=== PATIENT | male | born 1985 | race Caucasian/White ===

== ENCOUNTER 2019-10-01 00:04 | Emergency (ER) | payer SELFPAY ==
[~2019-10-01] VITALS: Ht 160 cm; Wt 78.0 kg
[2019-10-01 00:17] VITALS: BP_SYST 150
--- NOTE | 2019-10-01 01:19 | NUR ---
Patient to ER bed 05 to gown for evaluation. Side rails up. Report given to Harman MILLAN.
--- NOTE | 2019-10-01 01:26 | NUR ---
ER-MD AT BEDSIDE EVALUATING PT.
--- NOTE | 2019-10-01 01:44 | NUR ---
WENT FOR CT SCAN OF HEAD VIA WHEELCHAIR.
--- NOTE | 2019-10-01 03:04 | NUR ---
ER-MD BACK AT BEDSIDE TO RE-EVALUATE AND DISCUSS PLAN OF CARE WITH PT.
--- NOTE | 2019-10-01 03:12 | NUR ---
DISCHARGED STABLE. PRESCRIPTION,VERBAL AND WRITTEN AFTERCARE INSTRUCTIONS GIVEN. VERBALIZED UNDERSTANDING. LEFT AMBULATORY WITH STABLE GAIT.
[2019-10-01 03:20] VITALS: BP_SYST 132
== END 2019-10-01 03:20 | disposition home or self-care (01) ==
LOC: SED 00:04
DX: S06.0X0A Concussion without loss of consciousness, initial encounter (principal); X58.XXXA Exposure to other specified factors, initial encounter; Y93.89 Activity, other specified; Y92.89 Other specified places as the place of occurrence of the external cause; Y99.8 Other external cause status
CPT/HCPCS: 70450-TC; 99284

== ENCOUNTER 2022-11-28 21:17 | Emergency (ER) | payer MEDICAID, OTHER ==
[~2022-11-28] VITALS: Ht 167.6 cm; Wt 72.6 kg
[2022-11-28 21:43] VITALS: BP_SYST 143
[2022-11-29] MEDS ORDERED: CYCL10TA24 PO (01:26)
[2022-11-29] MEDS ORDERED: ACET-73 PO (01:26)
[2022-11-29] MEDS ORDERED: KETOROLAC TROMETHAMINE 30 MG VIAL IM ONE (01:30)
[2022-11-29 02:08] VITALS: BP_SYST 139
== END 2022-11-29 02:08 | disposition home or self-care (01) ==
LOC: SED 21:17
DX: M62.838 Other muscle spasm (principal); M54.2 Cervicalgia; R51.9 Headache, unspecified; R11.0 Nausea; Z79.899 Other long term (current) drug therapy
CPT/HCPCS: 99285; 70450; 72125; 76376; 96372; J1885

== ENCOUNTER 2024-01-01 21:12 | Emergency (ER) | payer MEDICAID, OTHER ==
[~2024-01-01] VITALS: Ht 162.6 cm; Wt 74.8 kg
[~2024-01-01 21:12] MED LIST: ACET-73 PO; CYCL10TA24 PO
[2024-01-01 21:21] VITALS: BP_SYST 129; PULSE 63; RESP 20; TEMP 98.3; O2SAT 98
[2024-01-01 22:26] LABS: BILIRUBIN,URINE NEGATIVE (NEGATIVE); BLOOD, URINE NEGATIVE (NEGATIVE); CLARITY/URINE CLEAR (CLEAR); COLOR,URINE YELLOW (YELLOW); GLUCOSE,URINE NEGATIVE (NEGATIVE); KETONES,URINE NEGATIVE (NEGATIVE); LEUKOCYTE ESTERASE ,URINE NEGATIVE (NEGATIVE); NITRITE, URINE NEGATIVE (NEGATIVE); PROTEIN URINE NEGATIVE (NEGATIVE); UROBILINOGEN,URINE 0.2 (0.2-1.0)
[2024-01-01] MEDS: KETOROLAC TROMETHAMINE 60 MG/2 ML VIAL IM ONE (23:08)
[2024-01-01] MEDS ORDERED: BENZ1LOZ73 PO (23:29)
[2024-01-01] MEDS ORDERED: NAPR-1172 PO (23:29)
[2024-01-01 23:36] VITALS: BP_SYST 129; PULSE 63; RESP 20; TEMP 98.3; O2SAT 98
== END 2024-01-01 23:36 | disposition home or self-care (01) ==
LOC: SED 21:12
DX: S33.5XXA Sprain of ligaments of lumbar spine, initial encounter (principal); R10.9 Unspecified abdominal pain; R11.0 Nausea; J45.909 Unspecified asthma, uncomplicated; Z98.890 Other specified postprocedural states; Z79.899 Other long term (current) drug therapy; V89.2XXA Person injured in unspecified motor-vehicle accident, traffic, initial encounter; Y93.89 Activity, other specified; Y92.89 Other specified places as the place of occurrence of the external cause; Y99.8 Other external cause status
CPT/HCPCS: 99284; 71045; 81001; 96372; J1885; 81003

== ENCOUNTER 2024-04-26 23:19 | Emergency (ER) | payer OTHER ==
[~2024-04-26] VITALS: Ht 165.1 cm; Wt 72.6 kg
[~2024-04-26 23:19] MED LIST changes: +BENZ1LOZ73 PO; +NAPR-1172 PO
[2024-04-26 23:28] VITALS: BP_SYST 140; PULSE 61; RESP 20; TEMP 98; O2SAT 98
[2024-04-27 00:19] LABS: BASOPHILS # (AUTO) 0.1 K/uL (0.0-0.2); BASOPHILS % (AUTO) 1.4 % (0.0-2.0); EOSINOPHILS # (AUTO) 0.6 K/uL (0.0-0.4); EOSINOPHILS % (AUTO) 7.7 % (0.0-4.0); HEMOGLOBIN 14.8 g/dL (14.0-18.0); LYMPHOCYTES % (AUTO) 36.3 % (20.5-51.5); MEAN CORPUSCULAR HEMOGLOBIN 31 pg (27-31); MEAN CORPUSCULAR HGB CONC 35 % (32-36); MEAN CORPUSCULAR VOLUME 88 fL (79.0-98.0); MONOCYTES # (AUTO) 0.5 K/uL (0.0-1.0); MONOCYTES % (AUTO) 6.5 % (1.7-9.3); NEUTROPHILS % (AUTO) 48.1 % (40.0-70.0); PLATELET COUNT (AUTO) 307 K/uL (130-430); RED BLOOD CELL COUNT(AUTO) 4.77 MIL/uL (4.2-6.2); RED CELL DISTRIBUTION WIDTH 13.4 % (9.0-15.0); WHITE BLOOD COUNT (AUTO) 8.3 K/uL (4.8-10.8)
[2024-04-27] MEDS: MORPHINE 4 MG INJ. 4 MG/ML VIAL IVP ONE (00:30)
[2024-04-27] MEDS: KETOROLAC TROMETHAMINE 30 MG VIAL IVP ONE (00:51)
[2024-04-27 00:54] LABS: CALCIUM 9.8 mg/dL (8.4-11.0); CREATININE 0.93 mg/dL (0.55-1.30); POTASSIUM 4.3 mmol/L (3.5-5.1)
[2024-04-27 01:41] LABS: BILIRUBIN,URINE NEGATIVE (NEGATIVE); BLOOD, URINE NEGATIVE (NEGATIVE); CLARITY/URINE CLEAR (CLEAR); COLOR,URINE YELLOW (YELLOW); GLUCOSE,URINE NEGATIVE (NEGATIVE); KETONES,URINE NEGATIVE (NEGATIVE); LEUKOCYTE ESTERASE ,URINE NEGATIVE (NEGATIVE); NITRITE, URINE NEGATIVE (NEGATIVE); PROTEIN URINE NEGATIVE (NEGATIVE); UROBILINOGEN,URINE 0.2 (0.2-1.0)
[2024-04-27] MEDS ORDERED: TRAM50TA2 PO (02:36)
[2024-04-27 03:01] VITALS: BP_SYST 140; PULSE 61; RESP 20; TEMP 98; O2SAT 98
== END 2024-04-27 03:01 | disposition home or self-care (01) ==
LOC: SED 23:19
DX: M54.50 Low back pain, unspecified (principal); G89.29 Other chronic pain; J45.909 Unspecified asthma, uncomplicated; Z79.899 Other long term (current) drug therapy; Z79.2 Long term (current) use of antibiotics
CPT/HCPCS: 99285; 80048; 81001; 85025; 36415; 81003; 96374; 72131; 96375; J1885; J2270